=== PATIENT | male | born 1995 | race Caucasian/White ===

== ENCOUNTER 2020-10-19 13:47 | Emergency (ER) | payer OTHER ==
[~2020-10-19] VITALS: Ht 167.6 cm; Wt 81.8 kg
[~2020-10-19 13:47] MED LIST: LEVO750T68 PO
[2020-10-19 15:18] LABS: GLUCOSE,POINT OF CARE 104 MG/DL (70-110)
[2020-10-19 18:00] VITALS: BP 140/70
== END 2020-10-19 21:36 | disposition home or self-care (01) ==
LOC: EMS 13:49
DX: F10.229 Alcohol dependence with intoxication, unspecified (principal); Z79.899 Other long term (current) drug therapy; Y90.8 Blood alcohol level of 240 mg/100 ml or more
CPT/HCPCS: 36415; 82962; 99285; G0480; 82948